=== PATIENT | female | born 1935 | race Caucasian/White ===

== ENCOUNTER 2025-10-01 18:58 | Emergency (ER) | payer MEDICARE, OTHER, SELFPAY ==
[2025-10-01 19:02] VITALS: BP 162/92
[2025-10-01] MEDS: ADACEL 0.5 ML IM (19:27)
--- NOTE | 2025-10-01 19:46 | ED.GENMED ---
History of Present Illness
General
Chief Complaint: Fall
Source: patient
Exam Limitations: none
Time Seen by Provider: 10/01/25 19:17
History of Present Illness
History of Present Illness:
89-year-old female lost her balance or tripped and fell hitting her forehead. No syncope. No LOC. No thinners. Complaining of mild facial pain. Last tetanus is unknown. No other injury or complaint
Past History
Past History
ED Past Medical History: HTN
ED Past Surgical History: None
Social History
Tobacco: Non-smoker
Alcohol: None
Review of Systems
Review of Systems
All Other Systems: Not applicable
Respiratory: Reports no symptoms
Cardiac: Reports no symptoms
Phy Exam
Physical Exam
Physical Exam:
TRAUMA EXAM:
VITAL SIGNS: Vital signs reviewed, cooperative
DISTRESS: No active disease
EYES: Pupils reactive, no orbital trauma
NOSE: Abrasion to the bridge of the nose with mild swelling. No deformity
FACE AND SCALP: No scalp trauma, external canals no blood
NECK: Supple nontender
RESPIRATORY: No distress, breath sounds normal, no tender chest wall
CARDIAC: No murmur, pulses equal and strong
ABDOMEN: Soft nontender bowel sounds normal
SKIN: Skin intact no bleeding, color normal
EXTREMITIES: Nontender. Ambulating without pain
NEUROLOGICAL: Alert, oriented, no motor deficits
PSYCH: Mood affect normal
Course
Orders/Labs/Results
Orders:
Orders
10/01/25 19:06
CT Cervical Spine W/o Iv Contr Urgent
Comment:
Reason For Exam: fall, headstrike, bruising to forehead
CT Head W/o Iv Contrast Urgent
Comment:
Reason For Exam: fall, head strike, brusing to forehead.
10/01/25 19:23
CT Facial Bones W/o Iv Contras Urgent
Comment:
Reason For Exam: Trauma
Tetanus/Diphth/Acelpertussis [Adacel] 0.5 ml IM .ONCE ONE
Vital Signs
Initial and Last Documented VS:
Initial Vital Signs
Temp Pulse Resp BP Pulse Ox
97.5 F 105 18 162/92 96
10/01/25 19:02 10/01/25 19:02 10/01/25 19:02 10/01/25 19:02 10/01/25 19:02
Last Documented Vital Signs
Temp Pulse Resp BP Pulse Ox
97.5 F 105 18 162/92 96
10/01/25 19:02 10/01/25 19:02 10/01/25 19:02 10/01/25 19:02 10/01/25 19:48
Procedures
Laceration Closure
Midline nasal:
Status of Wound: clean
Size of Wound in cm: 1
Description of Wound Edges: ragged
Preparation: cleaned with saline
Revision/Debridement: routine- no revision
Wound exploration: explored to base- no FB
Type of Closure: Dermabond-skin glue
*Pulse Oximetry
SaO2: 96
Oxygen Mode of Delivery: Room air
Patient hypoxic: no (96)
*Critical Care Note
Total Time (30-74mins, 75-104mins- exclusive of procedures): Not Applicable
Update Note
Update Note:
Patient has remained medically stable. Head CT negative. Facial CT negative. No acute findings on cervical spine. 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 Copy of report will be given to patient for
follow-up
ED Attending Note
-
Portions of this chart may have been created with voice recognition software.� Occasional wrong word or��sound alike� substitutions may have occurred due to the inherent limitations of voice recognition software.
Discharge Plan
Departure
Patient Disposition: Home (Routine Discharge)
Date of Disposition: 10/01/25
Time of Disposition: 20:17
Patient with high blood pressure during this ER visit?: Yes
Discharge Problem:
Head injury, Nasal laceration, Incidental right/left carotid arterial c, Incidental thyroid nodule, Calcification right subclavian artery
Instructions: Laceration Repair With Glue (DC), Head Injury in Adults (DC), BLOOD PRESSURE
Prescriptions:
No Action
amlodipine 2.5 MG tablet
2.5 mg PO DAILY
ascorbic acid (vitamin C) [Vitamin C] 500 MG tablet
500 mg PO DAILY
lisinopril 10 MG tablet
10 mg PO DAILY
hydrochlorothiazide 25 MG tablet
12.5 mg PO DAILY
cholecalciferol (vitamin D3) 1,000 UNITS tablet
500 units PO DAILY
Fiber
1 tab PO DAILY
atorvastatin 40 MG tablet
40 mg PO QPM Qty: 30 0RF
clopidogrel 75 MG tablet
75 mg PO DAILY Qty: 30 0RF
aspirin 81 MG tablet,chewable
81 mg PO DAILY 0RF
Referrals:
Sonja Parra MD [Family Provider, Internal Medicine]
Discharge Date and Time
Print Language: YAKUT
== END 2025-10-01 20:36 | disposition home or self-care (01) ==
LOC: EMR 18:58
PROVIDERS: EMERGENCY PHYSICIAN Emergency Medicine; FAMILY PHYSICIAN Student in an Organized Health Care Education/Training Program
DX: S01.21XA Laceration without foreign body of nose, initial encounter (principal); W01.0XXA Fall on same level from slipping, tripping and stumbling without subsequent striking against object, initial encounter; E04.1 Nontoxic single thyroid nodule; I70.8 Atherosclerosis of other arteries; I10 Essential (primary) hypertension; Z23 Encounter for immunization
CPT/HCPCS: 99284; 90471; 12011; 70450; 70486; 72125; 90715